=== PATIENT | female | born 1980 | race Hispanic/Latino ===

== ENCOUNTER 2017-10-25 14:28 | Outpatient (CLI) | payer BC ==
--- NOTE | 2017-10-25 17:27 | ULT ---
THYROID ULTRASOUND: Date: 10/25/17 HISTORY: Brian's thyroiditis. COMPARISON: 02/22/16. TECHNIQUE: Sagittal and transverse imaging of the thyroid gland is performed. FINDINGS: There is diffuse heterogeneity throughout the thyroid gland. Thyroid isthmus measures 0.2 cm. Right t hyroid lobe measures 4.5 x 1.5 x 1.6 cm. Left thyroid lobe measures 4.8 x 1.6 x 1.9 cm. There is a solid hypoechoic area in the left thyroid lobe near the isthmus measuring 0.6 x 0.4 x 0.5 cm. There is a mixed solid and cystic nodule in the mid right thyroid lobe near the isthmus measuring 0.5 x 0.5 x 0.4 cm. There is an ill-defined area of solid echotexture in the upper pole of the right thyroid lobe without discrete borders. Definite mass in this region is difficult to discern at this time. This area measu res 2.1 x 0.6 cm. 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 Thy roid nodules as described above. Follow-up imaging in 1 year. POS: [facility]
== END 2017-10-25 14:29 | disposition home or self-care (01) ==
LOC: SCSULT 14:28
PROVIDERS: ATTEND Family Medicine
DX: E04.2 Nontoxic multinodular goiter (principal)
CPT/HCPCS: 76536

== ENCOUNTER 2018-07-15 10:17 | Outpatient (CLI) | payer BC ==
--- NOTE | 2018-07-15 12:13 | ULT ---
ABDOMEN ULTRASOUND: HISTORY: Right upper quadrant pain. COMPARISON: Abdomen ultrasound from 2017. TECHNIQUE: Real-time alcala-scale and color evaluation of the abdomen was performed. FINDINGS: The visualized portion of the pancreas, aorta, and IVC are unremarkable. Hepatic echotexture is norm al. The liver measures 16 cm in length. The portal vein has patent antegrade flow with normal phasicity. The right kidney measures 11.3 x 3.7 x 4.4 cm, without mass, hydronephrosis, or abnormal calcificatio ns. Gallbladder wall thickness is normal. No cholelithiasis. The common bile duct is normal, measuring less than 4 mm. The left kidney measures 9.5 x 5 x 6.4 cm without mass, hydronephrosis, or abnormal calcifications. The spleen measures 11.4 cm in length. IMPRESSION: No acute abdominal abnormality. POS: [facility]
== END 2018-07-15 10:18 | disposition home or self-care (01) ==
LOC: SCSULT 10:17
PROVIDERS: ATTEND Family Medicine
DX: R10.11 Right upper quadrant pain (principal); Z80.0 Family history of malignant neoplasm of digestive organs
CPT/HCPCS: 76700

== ENCOUNTER 2019-02-04 08:49 | Outpatient (CLI) | payer BC ==
[2019-02-04 09:12] LABS: #Eosinphils 0.1 thou/uL (0.0-0.7); #Lymphocytes 0.9 thou/uL (1.20-3.40); #Monocytes 0.3 thou/uL (0.11-0.59); #Neutrophils 2.5 thou/uL (1.40-6.50); %Basophils 1.2 % (0.0-1.0); %Eosinophils 1.8 % (0.0-10.0); %Lymphocytes 23.5 % (21.0-51.0); %Monocytes 8.2 % (0.0-10.0); %Neutrophils 65.3 % (42.0-75.0); Hemoglobin 12.2 g/dL (12.0-16.0); Mean Corpuscular HGB CONC 32.6 g/dL (32.0-36.0); Mean Corpuscular Hemoglobin 27.9 pg (27.0-31.0); Mean Corpuscular Volume 85.5 fL (78.0-98.0); Mean Platelet Volume 7.3 fL (7.4-10.4); Platelet Count 196 thou/uL (130-400); RBC Distribution Width 12.9 % (11.5-14.5); Red Blood Cell (RBC) Count 4.36 mill/uL (4.20-5.40); White Blood Cell (WBC) Count 3.9 thou/uL (4.8-10.8)
[2019-02-04 09:19] LABS: ALT (SGPT) 13 U/L (8-55); AST (SGOT) 14 U/L (5-34); Albumin 4.3 g/dL (3.5-5.0); Alkaline Phosphatase 39 U/L (40-150); Anion Gap 8 mmol/L (10-20); BUN (Urea Nitrogen) 11 mg/dL (7.0-18.7); Bilirubin, Total 0.5 mg/dL (0.2-1.2); Calc. Creatinine Clearance 0 mL/min (70-130); Calcium 9.2 mg/dL (7.8-10.44); Carbon Dioxide 31 mmol/L (22-29); Cardiac Risk 2.7 (Less than 4.5); Chloride 106 mmol/L (98-107); Cholesterol 169 mg/dl (< 200 Desired); Estimated GFR-MDRD 82; Globulin 2.8 g/dL (2.4-3.5); Glucose 91 mg/dL (70-105); HDL Cholesterol 62 mg/dL (>60 Neg Risk); LDL Cholesterol, Calculated 96 mg/dL; Protein, Total 7.1 g/dL (6.0-8.3); Sodium 141 mmol/L (136-145); Triglycerides 54 mg/dL (Less than 150)
[2019-02-04 09:39] LABS: Bilirubin Negative (Negative); Blood, Urine Negative (Negative); Clarity Clear (Clear); Glucose, Urine (Dipstick) Negative (Negative); Leukocyte Negative (Negative); Nitrite Negative (Negative); Protein, Urine (Dipstick) Negative (Neg-Trace); Urobilinogen 0.2 mg/dL (Less than 2)
[2019-02-04 10:01] LABS: Free T4 (Free Thyroxine) 0.9 ng/dL (0.70-1.48); Thyroid Stimulating Hormone 4.423 uIU/mL (0.35-4.94)
[2019-02-04 10:48] LABS: RBC/HPF 0-3 HPF (0-3); WBC/HPF 0-3 HPF (0-3)
[2019-02-04 10:50] LABS: Bacteria/HPF Rare-Few HPF (None Seen)
[2019-02-04 11:54] LABS: Iron 100 ug/dL (50-170)
--- NOTE | 2019-02-04 11:57 | ULT ---
THYROID ULTRASOUND: CLINICAL HISTORY: Thyroid nodule, followup. COMPARISON: Reference 10/25/2017 exam. FINDINGS: There is generalized heterogeneous echotexture throughout the thyroid gland, with right thyroid lobe length of 4.6 cm and left thyroid length of 4.9 cm. Thyroid isthmus measures between 2 and 3 mm. A dominant nodule is localized to the upper pole of the right thyroid lobe, measuring approximately 1 .1 x 0.8 x 2.3 cm. This is elongated, spanning the upper pole to the mid portion of the right thyroi d lobe. This is slightly larger than documented on prior exam where measuring slightly greater than 2 cm in greatest dimension. Additional subcentimeter nodules on prior exam are less conspicuous whic h may be due to the generalized heterogeneity of the thyroid parenchyma. IMPRESSION: Diffuse heterogeneity of the thyroid gland. Slight increase in size suggested of a hypoechoic region of elongated, slightly hypoechoic echotexture of the upper to mid right thyroid lobe. If necessary, FNA could be performed for further assessment, or alternatively a 6-month followup thyroid ultrasoun d. POS: [facility]
[2019-02-04 12:09] LABS: Ferritin 12.07 ng/mL (10-291)
[2019-02-04 12:10] LABS: Vitamin D, 25 Hydroxy 35.8 ng/ml (> 30.0)
[2019-02-05 05:10] LABS: Triidothyronine-T3 91 ng/dL (71-180)
[2019-02-05 16:23] LABS: EliA Thy New Method **** NEW METHOD ****
== END 2019-02-04 08:50 | disposition home or self-care (01) ==
LOC: SCSULT 08:49
PROVIDERS: ATTEND Family Medicine
DX: Z00.00 Encounter for general adult medical examination without abnormal findings (principal); D64.9 Anemia, unspecified; E55.9 Vitamin D deficiency, unspecified; E04.1 Nontoxic single thyroid nodule; R93.89 Abnormal findings on diagnostic imaging of other specified body structures; Z86.39 Personal history of other endocrine, nutritional and metabolic disease
CPT/HCPCS: 36415; 76536; 80053; 80061; 81001; 82306; 82728; 83540; 84439; 84443; 84480; 84481; 84482; 85025; 86376; 86800

== ENCOUNTER 2022-07-21 08:27 | Outpatient (CLI) | payer BC | END 2022-07-21 08:28 | disposition home or self-care (01) | LOC: ULT 08:27 | PROVIDERS: ATTEND Family Medicine | DX: R10.84 Generalized abdominal pain (principal) | CPT/HCPCS: 76700 ==

== ENCOUNTER 2022-09-12 13:40 | Outpatient (CLI) | payer BC | END 2022-09-12 13:41 | disposition home or self-care (01) | LOC: ULT 13:40 | PROVIDERS: ATTEND Family Medicine | DX: E04.9 Nontoxic goiter, unspecified (principal); R50.9 Fever, unspecified; R93.89 Abnormal findings on diagnostic imaging of other specified body structures | CPT/HCPCS: 71046; 76536 ==